=== PATIENT | female | born 1990 | race Caucasian/White ===

== ENCOUNTER 2018-10-22 15:10 | Emergency (ER) | payer BC, OTHER ==
[~2018-10-22] VITALS: Ht 162.6 cm; Wt 69.7 kg
[2018-10-22] MEDS ORDERED: ABIL1INJ IM (15:18)
--- NOTE | 2018-10-22 16:46 | REP ---
Right elbow for views: There is a thin linear metallic density within the soft tissues anteriorly , suggestive of a foreign body in the shape of a pin. Mineralization is normal. Soft tissues and skeletal structures otherwise are unremarkable. Impression: Thin linear foreign body in the shape of a pin in the anterior soft tissues Electronically Signed by Christopher Santos MD 10/22/2018 04:38 P
[2018-10-22] MEDS ORDERED: DOXY-350 PO (17:28)
[2018-10-22] MEDS ORDERED: ADACEL/BOOSTRIX VACCINE (DIPHTH/PERTUSS/ACELL/TETANUS)0.5ML SYR (90715) IM ONE (17:30)
[2018-10-22] MEDS ORDERED: DOXYCYCLINE HYCLATE 100 MG TAB PO ONE (17:30)
[2018-10-22 18:22] VITALS: BP 109/65
== END 2018-10-22 18:35 | disposition home or self-care (01) ==
LOC: M ED 15:10
DX: S50.351A Superficial foreign body of right elbow, initial encounter (principal); F19.10 Other psychoactive substance abuse, uncomplicated; X58.XXXA Exposure to other specified factors, initial encounter; Y92.099 Unspecified place in other non-institutional residence as the place of occurrence of the external cause; Y93.89 Activity, other specified; Y99.9 Unspecified external cause status; F31.9 Bipolar disorder, unspecified; Z98.84 Bariatric surgery status; Z72.0 Tobacco use; Z79.899 Other long term (current) drug therapy